=== PATIENT | female | born 1965 | race Caucasian/White ===

== ENCOUNTER → 2023-10-15 13:57 | Outpatient (REF) | payer OTHER, SELFPAY | LOC: WDC 13:57 | PROVIDERS: ATTENDING PHYSICIAN Physician Assistant Medical | DX: Z12.31 Encounter for screening mammogram for malignant neoplasm of breast (principal) | CPT/HCPCS: 77063; 77067 ==

== ENCOUNTER → 2024-03-25 14:19 | Outpatient (REF) | payer BC, SELFPAY | LOC: RAD 14:19 | PROVIDERS: ATTENDING PHYSICIAN Family Medicine | DX: R74.01 Elevation of levels of liver transaminase levels (principal) | CPT/HCPCS: 76700 ==

== ENCOUNTER → 2024-03-27 07:04 | Outpatient (REF) | payer BC, SELFPAY ==
[2024-03-27 09:59] LABS: ALT (SGPT) 67 U/L (0-35); AST (SGOT) 49 U/L (14-36); Albumin 4.6 g/dl (3.5-5.0); Alkaline Phosphatase 90 U/L (38-126); Blood Urea Nitrogen 13 mg/dl (7-17); Calcium 9.5 mg/dl (8.4-10.2); Carbon Dioxide 29 mmol/L (22-30); Chloride 102 mmol/L (98-107); Glucose 95 mg/dl (70-99); Potassium 4.3 mmol/L (3.5-5.1); Sodium 143 mmol/L (135-145); Total Bilirubin 0.5 mg/dl (0.2-1.3); Total Protein 7.8 g/dl (6.3-8.2); eGFR > 60.00
[2024-03-28 21:51] LABS: Alpha-1-Antitrypsin 147 mg/dL (90-200)
[2024-03-28 21:52] LABS: Ceruloplasmin 24 mg/dL (16-45)
[2024-03-28 22:55] LABS: IgG Subclass 1 944 mg/dL (240-1118); IgG Subclass 2 390 mg/dL (124-549); IgG Subclass 3 78 mg/dL (21-134); IgG Subclass 4 101 mg/dL (1-123)
[2024-03-28 23:48] LABS: IgA 301 mg/dl (70-400)
[2024-03-29 08:20] LABS: F-Actin Antibody IgG 10 Units (0-19); Mitochondrial M2 Ab, IgG 6.9 Units (0.0-24.9)
[2024-03-29 19:24] LABS: Hepatitis B Surface Antigen Positive (Negative)
[2024-03-29 19:42] LABS: Hepatitis A Antibody, Total Positive (Negative); Hepatitis B Core Ab, Total Reactive (Negative); Hepatitis B Surface Antibody Negative; Hepatitis C Antibody Negative (Negative)
[2024-03-29 20:26] LABS: Hepatitis A IgM Antibody Negative (Negative); Hepatitis B Core Ab, IgM Negative (Negative)
[2024-03-29 21:22] LABS: ANA, IgG Reflex to HEp-2 None Detected (None Detected)
== END ==
LOC: REG 07:04
PROVIDERS: ATTENDING PHYSICIAN Student in an Organized Health Care Education/Training Program
DX: R79.89 Other specified abnormal findings of blood chemistry (principal)
CPT/HCPCS: 36415; 80053; 81256; 82103; 82390; 82728; 82784; 82787; 83516; 86015; 86038; 86376; 86381; 86704; 86705; 86706; 86708; 86709; 86803; 87340

== ENCOUNTER → 2024-04-01 07:01 | Outpatient (REF) | payer BC, SELFPAY ==
[2024-04-01 07:53] LABS: % Eosinophils 1.4 % (0-6); % Immature Granulocytes 0.2 % (0-0.5); % Lymphocytes 31.2 % (20.5-51.1); % Monocytes 4.5 % (1.7-9.3); % Neutrophils 61.7 % (42.2-75.2); Absolute Basophils 0.1 10^3/uL (0-0.2); Absolute Eosinophils 0.1 10^3/uL (0-0.7); Absolute Lymphocytes 1.5 10^3/uL (1.2-3.4); Absolute Monocytes 0.2 10^3/uL (0.1-0.6); Hematocrit 39.8 % (37.0-47.0); Hemoglobin 13.3 g/dL (12.0-16.0); Mean Corp Hgb Conc. 33.4 g/dL (33.0-37.0); Mean Corpuscular Hgb 29.7 pg (27.0-31.0); Mean Corpuscular Volume 88.8 fL (81.0-99.0); Mean Platelet Volume 9.1 fL (7.4-10.4); Nucleated Red Blood Cells % 0 %; Platelet Count 265 10^3/uL (130-400); Red Blood Cell Count 4.48 10^6/uL (4.20-5.40); Red Cell Dist. Width 12.7 % (11.5-14.5); White Blood Cell Count 4.9 10^3/uL (4.8-10.8)
[2024-04-01 08:10] LABS: INR 1.12; PT 14.5 Sec (11.4-14.6)
[2024-04-01 08:20] LABS: ALT (SGPT) 57 U/L (0-35); AST (SGOT) 42 U/L (14-36); Albumin 4.7 g/dl (3.5-5.0); Alkaline Phosphatase 93 U/L (38-126); Blood Urea Nitrogen 16 mg/dl (7-17); Calcium 9.5 mg/dl (8.4-10.2); Carbon Dioxide 27 mmol/L (22-30); Chloride 103 mmol/L (98-107); Glucose 106 mg/dl (70-99); Potassium 4.2 mmol/L (3.5-5.1); Sodium 142 mmol/L (135-145); Total Bilirubin 0.6 mg/dl (0.2-1.3); Total Protein 7.9 g/dl (6.3-8.2); eGFR > 60.00
[2024-04-01 18:37] LABS: AFP Male/Tumor Marker 2.65 ng/ml
[2024-04-01 18:38] LABS: Hepatitis B Surface Antigen Positive (Negative)
[2024-04-01 18:56] LABS: Hepatitis B Core Ab, Total Reactive (Negative); Hepatitis B Surface Antibody Negative
[2024-04-02 13:20] LABS: HIV Combo Negative (Negative)
[2024-04-03 14:35] LABS: Hepatitis D Antibody Negative (Negative)
== END ==
LOC: REG 07:01
PROVIDERS: ATTENDING PHYSICIAN Student in an Organized Health Care Education/Training Program; FAMILY PHYSICIAN Family Medicine
DX: B18.1 Chronic viral hepatitis B without delta-agent (principal); R79.89 Other specified abnormal findings of blood chemistry
CPT/HCPCS: 36415; 80053; 82105; 85025; 85610; 86692; 86704; 86706; 87340; 87389; 87517

== ENCOUNTER → 2024-04-10 07:19 | Outpatient (REF) | payer BC, SELFPAY ==
[2024-04-12 18:52] LABS: Hepatitis B Surface Antigen Positive (Negative)
[2024-04-12 19:07] LABS: Hepatitis B Surface Antibody Negative
== END ==
LOC: REG 07:19
PROVIDERS: ATTENDING PHYSICIAN Student in an Organized Health Care Education/Training Program; FAMILY PHYSICIAN Family Medicine
DX: B18.1 Chronic viral hepatitis B without delta-agent (principal)
CPT/HCPCS: 36415; 86706; 87340

== ENCOUNTER 2024-04-27 06:34 | Day surgery (SDC) | payer BC, SELFPAY | END 2024-04-27 11:05 | disposition home or self-care (01) | LOC: GI 06:34 | PROVIDERS: ATTENDING PHYSICIAN Student in an Organized Health Care Education/Training Program | DX: Z12.11 Encounter for screening for malignant neoplasm of colon (principal); K63.5 Polyp of colon; R10.13 Epigastric pain; Z87.11 Personal history of peptic ulcer disease; K31.89 Other diseases of stomach and duodenum; K25.9 Gastric ulcer, unspecified as acute or chronic, without hemorrhage or perforation | CPT/HCPCS: 45380; 43239; 88305; 88342 ==

== ENCOUNTER → 2024-05-12 15:17 | Outpatient (REF) | payer BC, SELFPAY | LOC: RAD 15:17 | PROVIDERS: ATTENDING PHYSICIAN Student in an Organized Health Care Education/Training Program; FAMILY PHYSICIAN Family Medicine | DX: R89.9 Unspecified abnormal finding in specimens from other organs, systems and tissues (principal); B18.1 Chronic viral hepatitis B without delta-agent | CPT/HCPCS: 74178; Q9967 ==

== ENCOUNTER → 2024-05-29 08:30 | Outpatient (REF) | payer BC, SELFPAY ==
[2024-05-29 09:14] LABS: % Basophils 1.1 % (0-2); % Eosinophils 2.3 % (0-6); % Immature Granulocytes 0.2 % (0-0.5); % Lymphocytes 34.9 % (20.5-51.1); % Monocytes 6.2 % (1.7-9.3); % Neutrophils 55.3 % (42.2-75.2); Absolute Basophils 0.1 10^3/uL (0-0.2); Absolute Eosinophils 0.1 10^3/uL (0-0.7); Absolute Lymphocytes 1.9 10^3/uL (1.2-3.4); Absolute Monocytes 0.3 10^3/uL (0.1-0.6); Hematocrit 39.6 % (37.0-47.0); Hemoglobin 13.6 g/dL (12.0-16.0); Mean Corp Hgb Conc. 34.3 g/dL (33.0-37.0); Mean Corpuscular Hgb 30.9 pg (27.0-31.0); Mean Platelet Volume 9.2 fL (7.4-10.4); Nucleated Red Blood Cells % 0 %; Platelet Count 239 10^3/uL (130-400); Red Cell Dist. Width 12.6 % (11.5-14.5); White Blood Cell Count 5.3 10^3/uL (4.8-10.8)
[2024-05-29 09:22] LABS: INR 0.94; PT 13.1 Sec (11.4-14.6)
[2024-05-29 09:34] LABS: ALT (SGPT) 30 U/L (0-35); AST (SGOT) 31 U/L (14-36); Albumin 4.7 g/dl (3.5-5.0); Alkaline Phosphatase 84 U/L (38-126); Blood Urea Nitrogen 15 mg/dl (7-17); Calcium 9.5 mg/dl (8.4-10.2); Carbon Dioxide 28 mmol/L (22-30); Chloride 101 mmol/L (98-107); Glucose 99 mg/dl (70-99); Potassium 4.8 mmol/L (3.5-5.1); Sodium 140 mmol/L (135-145); Total Bilirubin 0.6 mg/dl (0.2-1.3); Total Protein 7.9 g/dl (6.3-8.2); eGFR > 60.00
[2024-05-31 18:47] LABS: Hepatitis B Surface Antigen Positive (Negative)
== END ==
LOC: REG 08:30
PROVIDERS: ATTENDING PHYSICIAN Student in an Organized Health Care Education/Training Program; FAMILY PHYSICIAN Family Medicine
DX: B18.1 Chronic viral hepatitis B without delta-agent (principal)
CPT/HCPCS: 36415; 80053; 85025; 85610; 87340

== ENCOUNTER → 2024-06-08 07:29 | Outpatient (REF) | payer BC, SELFPAY ==
[2024-06-09 11:49] LABS: H. pylori Breath Test Negative (Negative)
[2024-06-10 23:42] LABS: HBV Quant by NAAT IU/mL 44 IU/mL; HBV Quant by NAAT Interp Detected (Not Detected); HBV Quant by NAAT Log IU/mL 1.65 log IU/mL
== END ==
LOC: REG 07:29
PROVIDERS: ATTENDING PHYSICIAN Student in an Organized Health Care Education/Training Program; FAMILY PHYSICIAN Family Medicine
DX: B18.1 Chronic viral hepatitis B without delta-agent (principal); Z87.11 Personal history of peptic ulcer disease
CPT/HCPCS: 36415; 83013; 87517

== ENCOUNTER 2024-07-27 06:11 | Day surgery (SDC) | payer BC, SELFPAY ==
[2024-07-27 07:09] VITALS: BMI 22.9
[2024-07-27 07:21] VITALS: BMI 22.9
[2024-07-27 07:22] VITALS: BP 146/82
[2024-07-27 08:57] VITALS: BP 127/84
[2024-07-27 09:00] VITALS: BP 124/79
[2024-07-27 09:15] VITALS: BP 140/75
[2024-07-27 09:25] VITALS: BP 146/78
== END 2024-07-27 09:38 | disposition home or self-care (01) ==
LOC: GI 06:11
PROVIDERS: ATTENDING PHYSICIAN Internal Medicine Gastroenterology
DX: K31.89 Other diseases of stomach and duodenum (principal)
CPT/HCPCS: 43259

== ENCOUNTER → 2024-09-24 06:28 | Outpatient (REF) | payer BC, SELFPAY ==
[2024-09-24 07:29] LABS: % Basophils 0.9 % (0-2); % Eosinophils 3.2 % (0-6); % Immature Granulocytes 0.2 % (0-0.5); % Lymphocytes 39.8 % (20.5-51.1); % Monocytes 5.7 % (1.7-9.3); % Neutrophils 50.2 % (42.2-75.2); Absolute Eosinophils 0.2 10^3/uL (0-0.7); Absolute Lymphocytes 1.9 10^3/uL (1.2-3.4); Absolute Monocytes 0.3 10^3/uL (0.1-0.6); Absolute Neutrophils 2.4 10^3/uL (1.4-6.5); Hematocrit 36.9 % (37.0-47.0); Hemoglobin 12.9 g/dL (12.0-16.0); Mean Corpuscular Hgb 31.1 pg (27.0-31.0); Mean Corpuscular Volume 88.9 fL (81.0-99.0); Nucleated Red Blood Cells % 0 %; Platelet Count 230 10^3/uL (130-400); Red Blood Cell Count 4.15 10^6/uL (4.20-5.40); Red Cell Dist. Width 12.5 % (11.5-14.5); White Blood Cell Count 4.7 10^3/uL (4.8-10.8)
[2024-09-24 07:54] LABS: ALT (SGPT) 23 U/L (0-35); AST (SGOT) 23 U/L (14-36); Albumin 4.7 g/dl (3.5-5.0); Alkaline Phosphatase 84 U/L (38-126); Blood Urea Nitrogen 19 mg/dl (7-17); Calcium 9.3 mg/dl (8.4-10.2); Carbon Dioxide 25 mmol/L (22-30); Chloride 106 mmol/L (98-107); Glucose 101 mg/dl (70-99); Potassium 4.2 mmol/L (3.5-5.1); Sodium 144 mmol/L (135-145); Total Bilirubin 0.7 mg/dl (0.2-1.3); Total Protein 7.8 g/dl (6.3-8.2); eGFR > 60.00
[2024-09-24 07:58] LABS: APTT 28.3 Sec (23.4-35.0)
[2024-09-24 08:27] LABS: Hepatitis B Surface Antigen Positive (Negative)
[2024-09-24 08:29] LABS: AFP Male/Tumor Marker 2.76 ng/ml
[2024-09-24 11:44] LABS: PT 13.5 Sec (11.4-14.6)
[2024-09-26 03:09] LABS: HBV Quant by NAAT IU/mL Not Quantified IU/mL; HBV Quant by NAAT Interp Detected (Not Detected); HBV Quant by NAAT Log IU/mL Not Quantified log IU/mL
== END ==
LOC: RAD 06:28
PROVIDERS: ATTENDING PHYSICIAN Student in an Organized Health Care Education/Training Program; FAMILY PHYSICIAN Family Medicine
DX: B18.1 Chronic viral hepatitis B without delta-agent (principal)
CPT/HCPCS: 36415; 76700; 80053; 82105; 85025; 85610; 85730; 87340; 87517

== ENCOUNTER → 2025-01-27 06:41 | Outpatient (REF) | payer BC, SELFPAY ==
[2025-01-27 07:52] LABS: Hematocrit 40.5 % (37.0-47.0); Hemoglobin 13.3 g/dL (12.0-16.0); Mean Corp Hgb Conc. 32.8 g/dL (33.0-37.0); Mean Corpuscular Volume 90.6 fL (81.0-99.0); Nucleated Red Blood Cells % 0 %; Platelet Count 246 10^3/uL (130-400); Red Cell Dist. Width 12.7 % (11.5-14.5)
[2025-01-27 07:54] LABS: INR 0.97; PT 13.3 Sec (11.4-14.6)
[2025-01-27 07:55] LABS: APTT 28.0 Sec (23.4-35.0)
[2025-01-27 08:14] LABS: ALT (SGPT) 26 U/L (0-35); AST (SGOT) 24 U/L (14-36); Albumin 4.7 g/dl (3.5-5.0); Alkaline Phosphatase 82 U/L (38-126); Blood Urea Nitrogen 19 mg/dl (7-17); Calcium 9.6 mg/dl (8.4-10.2); Carbon Dioxide 29 mmol/L (22-30); Chloride 105 mmol/L (98-107); Glucose 96 mg/dl (70-99); Potassium 4.4 mmol/L (3.5-5.1); Sodium 140 mmol/L (135-145); Total Protein 8.1 g/dl (6.3-8.2); eGFR > 60.00
[2025-01-27 18:56] LABS: AFP Male/Tumor Marker 2.17 ng/ml
[2025-01-27 19:06] LABS: Hepatitis B Surface Antigen Positive (Negative)
[2025-01-28 22:20] LABS: HBV Quant by NAAT IU/mL Not Quantified IU/mL; HBV Quant by NAAT Interp Detected (Not Detected); HBV Quant by NAAT Log IU/mL Not Quantified log IU/mL
== END ==
LOC: REG 06:41
PROVIDERS: ATTENDING PHYSICIAN Student in an Organized Health Care Education/Training Program
DX: B18.1 Chronic viral hepatitis B without delta-agent (principal)
CPT/HCPCS: 36415; 80053; 82105; 85025; 85610; 85730; 87340; 87517

== ENCOUNTER → 2025-03-16 06:40 | Outpatient (REF) | payer BC, SELFPAY | LOC: RAD 06:40 | PROVIDERS: ATTENDING PHYSICIAN Student in an Organized Health Care Education/Training Program; FAMILY PHYSICIAN Family Medicine | DX: B18.1 Chronic viral hepatitis B without delta-agent (principal) | CPT/HCPCS: 76700 ==

== ENCOUNTER → 2025-05-30 06:38 | Outpatient (REF) | payer BC, SELFPAY ==
[2025-05-30 07:13] LABS: Hematocrit 37.3 % (37.0-47.0); Hemoglobin 12.6 g/dL (12.0-16.0); Mean Corp Hgb Conc. 33.8 g/dL (33.0-37.0); Mean Corpuscular Volume 89.0 fL (81.0-99.0); Platelet Count 261 10^3/uL (130-400); Red Cell Dist. Width 12.9 % (11.5-14.5)
[2025-05-30 07:30] LABS: INR 1.05; PT 13.8 Sec (11.4-14.6)
[2025-05-30 07:31] LABS: APTT 28.8 Sec (23.4-35.0)
[2025-05-30 07:45] LABS: ALT (SGPT) 19 U/L (0-35); AST (SGOT) 23 U/L (14-36); Albumin 4.5 g/dl (3.5-5.0); Alkaline Phosphatase 78 U/L (38-126); Blood Urea Nitrogen 18 mg/dl (7-17); Calcium 9.1 mg/dl (8.4-10.2); Carbon Dioxide 23 mmol/L (22-30); Chloride 106 mmol/L (98-107); Glucose 97 mg/dl (70-99); Potassium 4.4 mmol/L (3.5-5.1); Sodium 139 mmol/L (135-145); Total Protein 7.7 g/dl (6.3-8.2); eGFR > 60.00
[2025-05-30 21:30] LABS: Hepatitis B Surface Antigen Positive (Negative)
[2025-06-01 20:05] LABS: HBV Quant by NAAT IU/mL Not Detected; HBV Quant by NAAT Interp Not Detected (Not Detected); HBV Quant by NAAT Log IU/mL Not Detected log IU/mL
== END ==
LOC: REG 06:38
PROVIDERS: ATTENDING PHYSICIAN Student in an Organized Health Care Education/Training Program; FAMILY PHYSICIAN Family Medicine
DX: B18.1 Chronic viral hepatitis B without delta-agent (principal)
CPT/HCPCS: 36415; 80053; 85027; 85610; 85730; 86707; 87340; 87350; 87517